=== PATIENT | male | born 1970 | race Caucasian/White ===

== ENCOUNTER 2018-08-14 05:19 | Day surgery (SDC) | payer OTHER ==
[~2018-08-14] VITALS: Ht 182.9 cm; Wt 147.9 kg
--- NOTE | ~2018-08-14 | EKG ---
[address] [address] ELECTROCARDIOGRAM REPORT Name: WINSTON FUENTES III Room #: [facility]#: [id number] Admission: 08/14/18 Attend Phys: Traci Astudillo, Discharge: 08/14/18 Date of : 66 Report #: [id number] THIS REPORT FOR: //name// [facility] Test Date: 2018-08-14 Test Time: 06:46:07 Pat Name: WINSTON FUENTES Department: Room: 150 4 Gender: M City [employer]anner: NAKIA : 1970 Requested By: Traci Astudillo Order Number: [id number] MD: Francesco Holliday Measurements Intervals [place] Rate: 79 P: 70 GA: 141 QRS: 61 QRSD: 95 T: 25 QT: 371 QTc: 426 Interpretive Statements Sinus rhythm No previous ECG available for comparison Electronically Signed On 08-14-2018 17:45:58 CDT by Francesco Holliday [email or web address] <ELECTRONICALLY SIGNED> By: Francesco Holliday MD 08/14/18 1745 0646 5 Francesco Holliday MD /JAYDEN
--- NOTE | ~2018-08-14 | O ---
[facility] [place] [address] OPERATIVE REPORT Name: WINSTON FUENTES III Room #: 150-4 [facility]..#: [id number] Admission: 08/14/18 Attend Phys: Traci Astudillo, Discharge: Date of : 66 Report #: [id number] THIS REPORT FOR: //name// CC: Luci Astudillo DATE OF SERVICE: 08/14/2018 PREOPERATIVE DIAGNOSES: 1. Left carpal tunnel syndrome. 2. 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 POSTOPERATIVE DIAGNOSES: 1. Left carpal tunnel syndrome. 2. 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 PROCEDURE PERFORMED: 1. Left open carpal tunnel release. 2. Left ulnar nerve decompression at the elbow in situ. SURGEON: Traci Astudillo MD ANESTHESIA: General mask anesthesia. ESTIMATED BLOOD LOSS: 2 mL. TOURNIQUET TIME: 29 minutes. COMPLICATIONS: None. CONDITION: Stable. DISPOSITION: Recovery room. INDICATIONS: The patient is a 47-year-old male with the above-mentioned diagnosis. He elects for operative treatment. The risks, benefits, alternatives, complications were discussed and included but were not limited to infection, damage to blood vessels or nerves, incomplete relief of symptoms, and possible initial worsening of his symptoms. Informed consent was obtained. The correct extremity was identified and labeled by myself and verbal confirmation of patient as well as visual confirmation and signed informed consent. DESCRIPTION OF PROCEDURE: The patient was brought back to the operating room, placed on the operating table in supine. He received preoperative antibiotics. Tourniquet was placed over padding on the patient's extremity. The left upper extremity was sterilely prepped and draped in usual fashion. A final timeout [address] [address] OPERATIVE REPORT Name: ALFREDOWINSTON Collier [facility] Room #: 150-4 [facility] Amanda#: [id number] Admission: 08/14/18 Attend Phys: Traci Astudillo, Discharge: Date of : 66 Report #: [id number] was taken to verify correct patient, operative procedure, operative site, all concurred. The entire procedures were done with the aid of 3.5 loupe magnification. The arm was elevated, exsanguinated, tourniquet inflated. Next, attention was placed to the carpal tunnel, a 3 cm longitudinal incision was made over the carpal tunnel in line with the ring and long finger web space. Dissection was carried down through subcutaneous tissue with tenotomy scissors. In the mid portion of the incision, a 15 blade was used to incise the very thick transverse carpal ligament. The very thick transverse carpal ligament was transected proximally from the antebrachial fascia of the forearm all the way through the fat in the palm. The incision was ulnar to the course of median nerve to decrease postoperative scarring. The nerve looked to be in good condition. Next, the wound was thoroughly irrigated. Skin was closed with 4-0 nylon suture. Next, attention was placed to the elbow, approximately 12 cm incision was made over the course of ulnar nerve. Dissection was carried down through subcutaneous tissues with tenotomy scissors. Ulnar nerve was identified and posterior medial epicondyle was decompressed for approximately 10 cm proximal medial condyle and at 5 cm distal to medial epicondyle, it was significantly thickened. There was a significant amount of compression at the cubital tunnel. After it was completely decompressed, the nerve had a nice return of vascular pattern. The wound was thoroughly irrigated. A compression wrap was placed for 8 minutes while the tourniquet was deflated. Then the elbow wound was closed with 3-0 nylon suture. The ulna was stable with flexion and extension. Under direct visualization, approximately a total of 10 mL of 0.25% Marcaine was injected subcutaneously, divided between the 2 incisions. He was placed in a bulky dressing and an anterior slab elbow splint with the elbow flexed to approximately 90 degrees. All fingers were pink with brisk capillary refill at the conclusion of the case after deflation of tourniquet. All sponge and needle counts were correct. The patient was transferred to postoperative recovery room in stable condition. By: [id number] Traci Astudillo MD /lolis
[~2018-08-14 05:19] MED LIST: ALLOPURINOL 10100 M1 PO; BENAZEPRIL HCL20 MG PO; DICLOFENAC SODI75 MG PO; LIPITOR 20 MG T20 M1 PO; LORATIDINE 10 M10 M1 PO; METFORMIN HCL500 MG PO; SYNTHROID112 MC1 PO
[2018-08-14 06:42] VITALS: BP 135/84
[2018-08-14 09:25] VITALS: BP 135/84
== END 2018-08-14 10:30 | disposition home or self-care (01) ==
LOC: TBA 05:19 → OR 05:19 → TBA 05:20 → OR 09:54
DX: G56.02 Carpal tunnel syndrome, left upper limb (principal); G56.22 Lesion of ulnar nerve, left upper limb; I10 Essential (primary) hypertension; E78.5 Hyperlipidemia, unspecified; F17.210 Nicotine dependence, cigarettes, uncomplicated; E11.9 Type 2 diabetes mellitus without complications; F32.89 Other specified depressive episodes; E03.9 Hypothyroidism, unspecified; Z98.890 Other specified postprocedural states; Z79.899 Other long term (current) drug therapy; Z88.0 Allergy status to penicillin
CPT/HCPCS: 50010; 50101; 50386; 56524; 56525; 56526; 56527; 56969; 57006; 57091; 62110; 62900; 70005